=== PATIENT | female | born 1965 | race Caucasian/White ===

== ENCOUNTER 2018-01-13 16:00 | Outpatient (CLI) | payer BC, OTHER | END 2018-01-13 19:02 | disposition home or self-care (01) | LOC: SMA 16:00 | PROVIDERS: ATTEND Family Medicine | DX: Z12.31 Encounter for screening mammogram for malignant neoplasm of breast (principal); N64.89 Other specified disorders of breast | CPT/HCPCS: 77067 ==

== ENCOUNTER 2018-01-30 09:20 | Outpatient (CLI) | payer BC | END 2018-01-30 20:36 | disposition home or self-care (01) | LOC: SMA 09:20 | DX: R92.8 Other abnormal and inconclusive findings on diagnostic imaging of breast (principal) | CPT/HCPCS: 77066 ==

== ENCOUNTER 2019-06-11 09:12 | Outpatient (CLI) | payer BC | END 2019-06-11 21:10 | disposition home or self-care (01) | LOC: SMA 09:12 | PROVIDERS: ATTEND Family Medicine | DX: Z12.31 Encounter for screening mammogram for malignant neoplasm of breast (principal) | CPT/HCPCS: 77067 ==